=== PATIENT | female | born 1975 | race Caucasian/White ===

== ENCOUNTER 2017-05-14 16:47 | Emergency (ER) | payer SELFPAY ==
[~2017-05-14] VITALS: Ht 162.6 cm; Wt 107.0 kg
[~2017-05-14 16:47] MED LIST: ADVA250A INH; ALBU0.08 NEB; ALBU6.7H INH
[2017-05-14 17:13] VITALS: BP 134/86; PULSE 106; RESP 22; TEMP 98.4; O2SAT 100
[2017-05-14 17:22] VITALS: BP 134/86; PULSE 102; RESP 22; TEMP 98.4; O2SAT 98
[2017-05-14 17:27] VITALS: O2SAT 98
--- NOTE | 2017-05-14 17:28 | PD ---
HPI Chief Complaint: Respiratory Symptoms Time Seen by Provider: 17:25 Travel History International Travel<30 days: No Contact w/Intl Traveler<30days: No Traveled to known affect area: No History of Present Illness HPI 42-year-old female patient with history of COPD, smoker, presents to the ER today for several days history of cough, wheezing, shortness of breath, has been using her own nebulizer at home, states that she used for nebulizer today without significant improvement. She denies any fevers, chest pains, or any other issues. Modifying Factors: None Associated Signs & Symptoms: Coughing, wheezing, shortness of breath Risk Factors: COPD PFSH Past Medical History Asthma: Yes Autoimmune Disease: No Blood Disorders: No Anxiety: Yes Depression: Yes Heart Rhythm Problems: No Cancer: No Cardiovascular Problems: No High Cholesterol: No Chemotherapy: No Chest Pain: Yes (WITH ASTHMA ATTACK) Congestive Heart Failure: No COPD: Yes Cerebrovascular Accident: No Diabetes: Yes (HYPOGLYCEMIC AT TIMES WHEN ) Patient Takes Glucophage: No Diminished Hearing: No Endocrine: Yes Gastrointestinal Disorders: No GERD: No Glaucoma: No Genitourinary: No Headaches: Yes Hepatitis: No Hiatal Hernia: No Heparin Induced Thrombocytopen: No Hypertension: No Immune Disorder: No Inguinal Hernia: Yes Implanted Vascular Access Dvce: No Kidney Stones: No Musculoskeletal: Yes Neurologic: Yes Psychiatric: Yes Reproductive: Yes (ovarian cysts) Respiratory: Yes (COPD) Migraines: Yes (FROM COUGHING) Myocardial Infarction: No Radiation Therapy: No Renal Failure: No Seizures: No Sickle Cell Disease: No Sleep Apnea: No Thyroid Disease: No Ulcer: No Tetanus Vaccination: > 5 Years Influenza Vaccination: Yes PNEUMOCCOCAL Vaccine (Year): 2 ?: Not : 5 Para: 2 Miscarriage: 3 Ectopic : Yes Ovarian Cysts: Yes Tubal Ligation: Yes (1997) Past Surgical History Abdominal Surgery: Yes (RT HERNIA REPAIR) AICD: No Arteriovenous Shunt: No Cardiac Surgery: No Ear Surgery: No Endocrine Surgery: No Eye Surgery: No Genitourinary Surgery: No Gynecologic Surgery: Yes (TUBAL LIGATION) Insulin Pump: No Joint Replacement: No Neurologic Surgery: No Oral Surgery: No Pacemaker: No Thoracic Surgery: No Other Surgery: Yes Social History Alcohol Use: No Tobacco Use: Yes (/2 ppd) Substance Use: Yes (marijuana occasionally; last used 07/08/15) Allergies-Medications (Allergen,Severity, Reaction): Coded Allergies: azithromycin (Unverified Allergy, Severe, LEG CRAMPS, STRIDOR, DIAPHORESIS , 05/14/17) nitrofurantoin (Unverified Allergy, Mild, RASH, 05/14/17) Reported Meds & Prescriptions Reported Meds & Active Scripts Active Reported Albuterol Neb (Albuterol Sulfate) 2.5 Mg/3 Ml Neb 2.5 Mg NEB Q4HR NEB While awake Proventil Hfa 6.7 GM Inh (Albuterol Sulfate) 90 Mcg/Act Aer 2 Puff INH Q4-6H PRN Advair Diskus Inh (Fluticasone-Salmeterol Inh) 250-50 Mcg/Blist Aer 1 Puff INH BID Rinse mouth after use. Review of Systems Except as stated in HPI: all other systems reviewed are Neg Physical Exam Narrative GENERAL: Well-developed middle-aged female patient currently in mild respiratory distress. Awake and oriented 3. SKIN: Focused skin assessment warm/dry. HEAD: Atraumatic. Normocephalic. EYES: Pupils equal and round. No scleral icterus. No injection or drainage. ENT: No nasal bleeding or discharge. Mucous membranes pink and moist. NECK: Trachea midline. No JVD. CARDIOVASCULAR: Regular rate and rhythm. No murmur appreciated. RESPIRATORY: No accessory muscle use. Decreased throughout with wheezing. Breath sounds equal bilaterally. GASTROINTESTINAL: Abdomen soft, non-tender, nondistended. Hepatic and splenic margins not palpable. MUSCULOSKELETAL: No obvious deformities. No clubbing. No cyanosis. No edema. NEUROLOGICAL: Awake and alert. No obvious cranial nerve deficits. Motor grossly within normal limits. Normal speech. PSYCHIATRIC: Appropriate mood and affect; insight and judgment normal. Data Data Last Documented VS Vital Signs Date Time Temp Pulse Resp B/P (MAP) Pulse Ox O2 Delivery O2 Flow Rate FiO2 05/14/17 18:04 99 21 05/14/17 17:27 Room Air 05/14/17 17:27 05/14/17 17:22 98.4 102 22 Orders Orders Ecg Monitoring (05/14/17 17:25) Oximetry (05/14/17 17:25) Oxygen Administration (05/14/17 17:25) Chest, Single Ap (05/14/17 17:25) Albuterol-Ipratropium Neb (Duoneb Neb) (05/14/17 17:30) Prednisone (Deltasone) (05/14/17 17:30) Albuterol-Ipratropium Neb (Duoneb Neb) (05/14/17 18:30) Ed Discharge Order (05/14/17 18:55) [facility] Medical Decision Making Medical Screen Exam Complete: Yes Emergency Medical Condition: Yes Medical Record Reviewed: Yes Differential Diagnosis Bronchitis versus pneumonia versus COPD exacerbation Narrative Course Chest x-ray did not show any signs of acute pulmonary processes. Patient was treated with p.o. prednisone and several duo nebs in the ER. She reports feeling improved. Saturations are fairly good in the ER. At this point, my plan would be to release her with further treatment for COPD exacerbation. Return for any worsening of symptoms as necessary. The plan has been discussed with her and she states understanding. I have also talked to her regarding smoking cessation which will improve symptoms as well. Diagnosis Primary Impression: COPD exacerbation Additional Impression: Tobacco abuse Med/Other Pt SpecificInfo: Prescription(s) given Scripts Prednisone (Prednisone) 50 Mg Tab 50 MG PO DAILY for 5 Days, #5 TAB 0 Refills Prov: Kasia Neely MD 05/14/17 Albuterol Neb (Albuterol Neb) 2.5 Mg/3 Ml Neb 2.5 MG NEB Q4HR NEB for Breathing Treatment, #60 NEBULE 0 Refills While awake Prov: Kasia Neely MD 05/14/17 Albuterol 6.7 GM Inh (Proventil Hfa 6.7 GM Inh) 90 Mcg/Act Aer 2 PUFF INH Q4-6H Y for SHORTNESS OF BREATH, #1 INHALER 0 Refills Prov: Kasia Neely MD 05/14/17 Fluticasone-Salmeterol Inh (Advair Diskus Inh) 250-50 Mcg/Blist Aer 1 PUFF INH BID, #1 INHALER 0 Refills Rinse mouth after use. Prov: Kasia Neely MD 05/14/17 Disposition: 01 DISCHARGE HOME Condition: Stable Kasia Neely MD May 14, 2017 17:28
[2017-05-14] MEDS ORDERED: predniSONE 50 MG TAB PO ONE (17:30)
[2017-05-14] MEDS: RESP: ALBUTEROL 2.5 MG/IPRATROPIUM 0.5 MG NEB (SCH) INH ×2 (18:02→18:37)
[2017-05-14 18:04] VITALS: O2SAT 99
--- NOTE | 2017-05-14 18:18 | RADRPT ---
EXAM DATE/TIME: 05/14/2017 18:04 [facility] COMPARISON: CHEST SINGLE AP, August 05, 2014, 16:59. INDICATIONS : Cough and congestion for 3 days. MEDICAL HISTORY : Chronic obstructive pulmonary disease. Asthma. SURGICAL HISTORY : Tubal ligation. Hernia repair. ENCOUNTER: Initial ACUITY: 3 days PAIN SCORE: 0/10 LOCATION: Bilateral chest FINDINGS: A single view of the chest demonstrates the lungs to be symmetrically aerated without evidence of mas s, infiltrate or effusion. The cardiomediastinal contours are unremarkable. Osseous structures are intact. CONCLUSION: The lungs are clear. Rogerio Valentine MD on May 14, 2017 at 18:16 Board Certified Radiologist. This report was verified electronically.
[2017-05-14] MEDS ORDERED: PRED50 PO (18:57)
[2017-05-14] MEDS ORDERED: ALBU0.08 NEB (18:57)
[2017-05-14] MEDS ORDERED: ALBU6.7H INH (18:57)
[2017-05-14] MEDS ORDERED: ADVA250A INH (18:57)
[2017-05-14 19:05] VITALS: BP 124/71; PULSE 98; RESP 20; O2SAT 97
== END 2017-05-14 19:35 | disposition home or self-care (01) ==
LOC: PHED 16:47
DX: J44.1 Chronic obstructive pulmonary disease with (acute) exacerbation (principal); F17.200 Nicotine dependence, unspecified, uncomplicated; Z86.59 Personal history of other mental and behavioral disorders; Z87.39 Personal history of other diseases of the musculoskeletal system and connective tissue; Z86.69 Personal history of other diseases of the nervous system and sense organs; Z87.42 Personal history of other diseases of the female genital tract
CPT/HCPCS: 71045; 94640; 94664; 99283; J7512

== ENCOUNTER 2017-07-03 11:04 | Emergency (ER) | payer SELFPAY ==
[~2017-07-03] VITALS: Ht 162.6 cm; Wt 105.0 kg
[~2017-07-03 11:04] MED LIST changes: +PRED50 PO
[2017-07-03 11:09] VITALS: BP 147/78; PULSE 71; RESP 18; TEMP 98; O2SAT 98
--- NOTE | 2017-07-03 11:15 | PD ---
HPI Chief Complaint: Cold / Flu Symptoms Time Seen by Provider: 11:13 Travel History International Travel<30 days: No Contact w/Intl Traveler<30days: No Traveled to known affect area: No History of Present Illness HPI 42y female with a history of asthma presents to the ED for evaluation of congestion and sinus pressure for 1 week. In addition, says that she feels ear fullness and does not feel that she can completely empty her sinuses. She feels that her sinuses are swollen and they are tender to palpation. Patient states she has been using a Liat pot and ear candles but this is not reduced her symptoms. Says that she does have a history of COPD and takes Advair, duo nebs daily. Denies fevers, chills, chest pain, cough, shortness of breath. Denies headache, neck pain. PFSH Past Medical History Asthma: Yes Autoimmune Disease: No Blood Disorders: No Anxiety: Yes Depression: Yes Heart Rhythm Problems: No Cancer: No Cardiovascular Problems: No High Cholesterol: No Chemotherapy: No Chest Pain: Yes (WITH ASTHMA ATTACK) Congestive Heart Failure: No COPD: Yes Cerebrovascular Accident: No Diabetes: Yes (HYPOGLYCEMIC AT TIMES WHEN ) Diminished Hearing: No Endocrine: Yes Gastrointestinal Disorders: No GERD: No Glaucoma: No Genitourinary: No Headaches: Yes Hepatitis: No Hiatal Hernia: No Heparin Induced Thrombocytopen: No Hypertension: No Immune Disorder: No Inguinal Hernia: Yes Implanted Vascular Access Dvce: No Kidney Stones: No Musculoskeletal: Yes Neurologic: Yes Psychiatric: Yes Reproductive: Yes (ovarian cysts) Respiratory: Yes (COPD) Migraines: Yes (FROM COUGHING) Myocardial Infarction: No Radiation Therapy: No Renal Failure: No Seizures: No Sickle Cell Disease: No Sleep Apnea: No Thyroid Disease: No Ulcer: No PNEUMOCCOCAL Vaccine (Year): 2 ?: Not : 5 Para: 2 Miscarriage: 3 Ectopic : Yes Ovarian Cysts: Yes Tubal Ligation: Yes (1997) Past Surgical History Abdominal Surgery: Yes (RT HERNIA REPAIR) AICD: No Arteriovenous Shunt: No Cardiac Surgery: No Ear Surgery: No Endocrine Surgery: No Eye Surgery: No Genitourinary Surgery: No Gynecologic Surgery: Yes (TUBAL LIGATION) Insulin Pump: No Joint Replacement: No Neurologic Surgery: No Oral Surgery: No Pacemaker: No Thoracic Surgery: No Other Surgery: Yes Social History Alcohol Use: No Tobacco Use: Yes (/2 ppd) Substance Use: Yes (marijuana occasionally; last used 07/08/15) Allergies-Medications (Allergen,Severity, Reaction): Coded Allergies: azithromycin (Unverified Allergy, Severe, LEG CRAMPS, STRIDOR, DIAPHORESIS , 07/03/17) nitrofurantoin (Unverified Allergy, Mild, RASH, 07/03/17) Reported Meds & Prescriptions Reported Meds & Active Scripts Active Bactrim DS (Sulfamethoxazole-Trimethoprim) 800-160 Mg Tab 1 Tab PO BID Medrol Dosepak (Methylprednisolone) 4 Mg Dspk 4 Mg PO DIRECTED Per Pharmacist direction Albuterol Neb (Albuterol Sulfate) 2.5 Mg/3 Ml Neb 2.5 Mg NEB Q4HR NEB While awake Advair Diskus Inh (Fluticasone-Salmeterol Inh) 250-50 Mcg/Blist Aer 1 Puff INH BID Rinse mouth after use. Reported Duoneb (Ipratropium-Albuterol Neb) 0.5-2.5 Mg/3 Ml Neb 1 Nebule INH DAILY Review of Systems Except as stated in HPI: all other systems reviewed are Neg Physical Exam Narrative GENERAL: Well-nourished, well-developed patient. SKIN: Focused skin assessment warm/dry. HEAD: Normocephalic. EYES: No scleral icterus. No injection or drainage. Maxillary sinuses tender palpation, some edema noted. Tympanic membranes pearly adkins without bulging or edema. NECK: Supple, trachea midline. No JVD or lymphadenopathy. No meningismus CARDIOVASCULAR: Regular rate and rhythm without murmurs, gallops, or rubs. RESPIRATORY: Breath sounds equal bilaterally. No accessory muscle use. GASTROINTESTINAL: Abdomen soft, non-tender, nondistended. No CVA tenderness MUSCULOSKELETAL: No cyanosis, or edema. BACK: Nontender without obvious deformity. No CVA tenderness. Data Data Last Documented VS Vital Signs Date Time Temp Pulse Resp B/P (MAP) Pulse Ox O2 Delivery O2 Flow Rate FiO2 07/03/17 11:09 98.0 71 18 147/78 (101) 98 Orders Orders Ed Discharge Order (07/03/17 11:26) MDM Medical Decision Making Medical Screen Exam Complete: Yes Emergency Medical Condition: Yes Differential Diagnosis Sinusitis, bronchitis, upper respiratory infection Narrative Course 42-year-old female presents emergency room for evaluation of congestion and ear fullness that is been present for approximately 1 week. Patient continues to smoke daily but denies any shortness of breath or chest pain. Exam findings demonstrate tenderness palpation of the maxillary sinuses with edema. Because of patient's history of tobacco use and very tender sinuses will prescribe an antibiotic. Patient will be discharged with prednisone and Bactrim. Advised follow-up with a primary care physician. Return for worsening or persistent symptoms. Diagnosis Primary Impression: Sinusitis Qualified Codes: J01.10 - Acute frontal sinusitis, unspecified Referrals: Primary Care Physician Additional Instructions: Follow-up with primary care physician this week. Take all medications as prescribed. If your symptoms persist or worsen return to emergency department. Scripts Sulfamethoxazole-Trimethoprim (Bactrim DS) 800-160 Mg Tab 1 TAB PO BID for Infection, #20 TAB 0 Refills Prov: Alva Dumont MD 07/03/17 Methylprednisolone Dosepak (Medrol Dosepak) 4 Mg Dspk 4 MG PO DIRECTED, #1 DSPK 0 Refills Per Pharmacist direction Prov: Alva Dumont MD 07/03/17 Disposition: 01 DISCHARGE HOME Condition: Stable Theresa Torres Jul 03, 2017 11:15
[2017-07-03] MEDS ORDERED: IPRASOL INH (11:18)
[2017-07-03] MEDS ORDERED: MEDR4PAK PO (11:20)
[2017-07-03] MEDS ORDERED: BACT800T5 PO (11:20)
== END 2017-07-03 11:57 | disposition home or self-care (01) ==
LOC: PHEFT 11:04
DX: J32.9 Chronic sinusitis, unspecified (principal); J44.9 Chronic obstructive pulmonary disease, unspecified; F41.9 Anxiety disorder, unspecified; F32.9 Major depressive disorder, single episode, unspecified; E11.9 Type 2 diabetes mellitus without complications; F17.200 Nicotine dependence, unspecified, uncomplicated; Z79.51 Long term (current) use of inhaled steroids; Z88.1 Allergy status to other antibiotic agents
CPT/HCPCS: 99283